=== PATIENT | female | born 1955 | race Caucasian/White ===

== ENCOUNTER 2017-01-15 12:23 | Emergency (ER) | payer OTHER, BC ==
[~2017-01-15] VITALS: Ht 162.6 cm; Wt 101.3 kg
[~2017-01-15 12:23] MED LIST: CIPRO250 MG PO; IBUPROFEN800 MG PO; KEFLEX500 MG PO; LISINOPRIL20 MG PO; METFORMIN HCL500 MG PO; NAPROXEN500 MG PO; NORCO 5/3251 TABLET PO; OMEPRAZOLE20 M2 PO; VALIUM2 MG PO; ZOFRAN ODT4 MG PO
[2017-01-15 13:23] LABS: HEMATOCRIT 39.8 % (36.0-46.0); MCH 29.4 PG (29.0-34.0); MCHC 32.9 G/DL (30.0-36.0); MCV 89.4 FL (83-99); MEAN PLAT.VOLUME 10.5 uM^3 (9.5-12.4); PLATELET COUNT 446 K/uL (156-360); RBC DIS.WIDTH-CV 13.4 % (11.8-14.6); RBC DIS.WIDTH-SD 43.7 % (39-53); RED BLOOD COUNT 4.45 M/uL (3.80-5.20); WHITE BLOOD COUNT 13.9 K/uL (4.1-10.2)
[2017-01-15 13:31] LABS: CHLORIDE 103 mEq/L (99-109); POTASSIUM 4.2 mEq/L (3.7-5.4); SODIUM 137 mEq/L (136-147)
[2017-01-15 13:33] LABS: GLUCOSE 106 mg/dL (70-99)
[2017-01-15 13:34] LABS: ANION GAP 11 MEQ/L (2-14)
[2017-01-15 13:37] LABS: GFR ESTIMATE (CALCULATED) > 59 mL/min/
[2017-01-15 13:38] LABS: UREA NITROGEN (BUN) 25 mg/dL (9-23)
[2017-01-15 14:34] LABS: TROP-I INTERPRETATION NEGATIVE; TROPONIN-I < 0.01 ng/mL (0.0-0.30)
[2017-01-15 15:05] LABS: ADD MIUA? YES; BILIRUBIN NEGATIVE; BLOOD NEGATIVE; COLOR YELLOW ((YELLOW)); GLUCOSE (STRIP) NEGATIVE; KETONES NEGATIVE; LEUKOCYTES SMALL; NITRITE NEGATIVE; PROTEIN (STRIP) NEGATIVE; SPECIFIC GRAVITY 1.021 (1.000-1.030); UROBILINOGEN 0.2 MG/DL (0.2-1.0)
[2017-01-15 15:10] LABS: BACTERIA NONE SEEN /HPF; EPITHELIAL CELLS RARE /HPF; MUCUS TRACE /LPF; RED BLOOD CELLS 0-5 /HPF (0-5); WHITE BLOOD CELLS 0-5 /HPF (0-5)
[2017-01-15 19:55] VITALS: BP 104/61
== END 2017-01-15 19:57 | disposition home or self-care (01) ==
LOC: EME 12:23
PROVIDERS: Emergency Medicine
DX: E86.0 Dehydration (principal); I95.9 Hypotension, unspecified; R42 Dizziness and giddiness; Z96.651 Presence of right artificial knee joint; Z98.890 Other specified postprocedural states; I10 Essential (primary) hypertension; Z88.2 Allergy status to sulfonamides; Z88.6 Allergy status to analgesic agent
CPT/HCPCS: 71020; 71275; 80048; 81003; 84484; 85027; 85379; 93005; 99281; 99285; J7030